=== PATIENT | female | born 2000 | race Caucasian/White ===

== ENCOUNTER 2021-02-07 18:10 | Emergency (ER) | payer OTHER ==
[2021-02-07 18:35] LABS: BILIRUBIN,URINE NEGATIVE (NEGATIVE); GLUCOSE, URINE (UA) NEGATIVE (NEGATIVE); KETONES,URINE (UA) NEGATIVE (NEGATIVE); LEUKOCYTE ESTERASE, URINE SMALL (NEGATIVE); NITRITE,URINE NEGATIVE (NEGATIVE); OCCULT BLOOD,URINE NEGATIVE (NEGATIVE); PH,URINE 7.5 PH (5.0-7.5); PROTEIN,URINE NEGATIVE (NEGATIVE); UROBILINOGEN,URINE 0.2 (NORMAL) E.U./dL (NORMAL)
[2021-02-07 18:39] LABS: BACTERIA,URINE None Seen /HPF (None Seen); CLARITY,URINE CLEAR (CLEAR); HCG UR QUAL NEGATIVE; RBC,URINE 0-5 /HPF (0-5); SQUAMOUS EPITHELIAL CELL,UR FEW Squamous (<= Few); WBC,URINE 0-3 /HPF (0-5)
--- NOTE | 2021-02-07 18:58 | ED Physician Documentation ---
History of Present Illness - Stated complaint Stated Complaint: F - Chief complaint Chief Complaint: UTI - Additonal information Additional information: 20-year-old female presents to the emergency department for evaluation of thick yellow vaginal discharge some vaginal pruritus as well as pain that started 2 days ago. She recently completed a weeklong course of amoxicillin for a pharyngitis. She has no dysuria fevers or flank pain. Patient is sexually active monogamous with one male partner does not use condoms. She would like STD screening today. Review of Systems Constitutional: reports: Reviewed and negative Ears: reports: Reviewed and negative Nose: reports: Reviewed and negative Throat: reports: Reviewed and negative Cardiac: reports: Reviewed and negative Respiratory: reports: Reviewed and negative GI: reports: Reviewed and negative : reports: Discharge. denies: Dysuria, Frequency, Hesitancy Musculoskeletal: reports: Reviewed and negative Neurologic: reports: Reviewed and negative PD PAST MEDICAL HISTORY - Past Medical History Past Medical History: Yes - Past Surgical History Past Surgical History: No - Present Medications Home Medications: Ambulatory Orders Medication Instructions Recorded Confirmed Fluconazole [Diflucan] 200 mg PO ONCE #2 tablet 02/07/21 metroNIDAZOLE [Flagyl] 500 mg PO BID #20 tablet 02/07/21 - Allergies Allergies/Adverse Reactions: Allergies Allergy/AdvReac Type Severity Reaction Status Date / Time No Known Drug Allergies Allergy Verified 02/07/21 18:12 - Social History Does the pt smoke?: Yes Smoking Status: Current every day smoker Does the pt drink ETOH?: Yes Does the pt have substance abuse?: No - Immunizations Immunizations are current?: Yes - POLST Patient has POLST: No PD ED PE NORMAL - General General: Alert and oriented X 3, No acute distress, Well developed/nourished - HEENT HEENT: Atraumatic, Ears normal, Moist mucous membranes, Pharynx benign - Cardiac Cardiac: RRR, No murmur, No gallop - Respiratory Respiratory: No respiratory distress, Clear bilaterally - Abdomen Abdomen: Normal bowel sounds, Soft, Non tender - Female Female : Deferred - Back Back: No CVA TTP - Derm Derm: Normal color, Warm and dry, No rash - Extremities Extremities: No deformity, No tenderness to palpate, Normal ROM s pain - Neuro Neuro: Alert and oriented X 3, 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 Eye Opening: Spontaneous Motor: Obeys Commands Verbal: Oriented GCS Score: 15 - Psych Psych: Normal mood Results - Vitals Vitals: Vital Signs - 24 hr 02/07/21 18:13 Temperature 37.0 C Heart Rate 85 Respiratory 18 Rate Blood Pressure 123/86 H O2 Saturation 99 Oxygen O2 Source Room air - Labs Labs: Microbiology 02/07/21 18:55 Wet Prep - Final Genital - Cervix Laboratory Tests 02/07/21 18:21 Urine Color YELLOW Urine Clarity CLEAR Urine pH 7.5 Ur Specific [place] 1.020 Urine Protein NEGATIVE Urine Glucose (UA) NEGATIVE Urine Ketones NEGATIVE Urine Occult Blood NEGATIVE Urine Nitrite NEGATIVE Urine Bilirubin NEGATIVE Urine Urobilinogen 0.2 (NORMAL) Ur Leukocyte Esterase SMALL H Urine RBC 0-5 Urine WBC 0-3 Ur Squamous Epith Cells FEW Squamous Urine Bacteria None Seen Ur Microscopic Review INDICATED Urine Culture Comments INDICATED Urine HCG, Qual NEGATIVE PD MEDICAL DECISION MAKING - ED course Complexity details: reviewed results, re-evaluated patient, d/w patient ED course: Well-appearing 20-year-old female presents the emergency department for evaluation of 2 days white and yellow vaginal discharge with some discomfort in the genital area and associated pruritus. She recently completed a course of amoxicillin for a strep infection. She also requests GC screening as she is sexually active but not using condoms. UA is not consistent with infection. Her wet prep does show a small amount of clue cells therefore I suspect that this is likely bacterial vaginosis but given the pruritus I will also treat for a yeast infection. She will be started on fluconazole as well as Diflucan. Patient is to follow-up with her primary care provider. Emergent return precautions were discussed. Departure - Departure Disposition: 01 Home, Self Care Clinical Impression: Bacterial vaginosis, Yeast infection Condition: Stable Record reviewed to determine appropriate education?: Yes Instructions: ED Vaginosis Bacterial Prescriptions: Fluconazole [Diflucan] 200 mg PO ONCE #2 tablet metroNIDAZOLE [Flagyl] 500 mg PO BID #20 tablet Comments: The way it looks like you have developed a bacterial vaginosis. This is an overgrowth of bacteria in your vaginal canal. This is most likely because you were taking amoxicillin. Let us have you take the Flagyl twice daily for the next 10 days. I would like you to fill the prescription for the fluconazole. Take 1 tablet now and again at the end of your Flagyl course. You would also benefit by eating healthy cultures like lactobacillus or yogurt. This can help replenish healthy bacterial in our GI/ tract and restore a pH to normal
[2021-02-07 19:36] VITALS: BP 121/79
[2021-02-07 21:59] LABS: CHLAMYDIA TRACHOMATIS DNA NEGATIVE (NEGATIVE); NEISSERIA GONORRHOEAE DNA NEGATIVE (NEGATIVE); TRICHOMONAS VAGINALIS DNA NEGATIVE (NEGATIVE)
== END 2021-02-07 19:35 | disposition home or self-care (01) ==
LOC: ED 18:10
DX: N76.0 Acute vaginitis (principal); B37.9 Candidiasis, unspecified; F17.200 Nicotine dependence, unspecified, uncomplicated
CPT/HCPCS: 81001; 81003; 81025; 87086; 87210; 87491; 87591; 87661; 99283

== ENCOUNTER 2021-08-07 08:21 | Emergency (ER) | payer OTHER ==
[2021-08-07 08:32] VITALS: BP 123/78
--- NOTE | 2021-08-07 09:02 | XRAY Report ---
PROCEDURE: Knee 4 View LT INDICATIONS: Knee injury TECHNIQUE: 4 views of the left knee(s) were acquired. COMPARISON: None. FINDINGS: Bones: No fracture or dislocation. Normal patellar height and position. Joint spaces are maintained . No suspicious bony lesions. Soft tissues: No joint effusion. No suspicious soft tissue calcifications. IMPRESSION: No acute finding. Reviewed by: Nadir Silva MD on 08/07/2021 9:00 AM PDT Approved by: Nadir Silva MD on 08/07/2021 9:00 AM PDT Station ID: [id number]
--- NOTE | 2021-08-07 09:15 | ED Physician Documentation ---
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 She twisted her knee and now has pain from the medial knee towards the lateral hip. She had this happen before. She is able to walk and bear weight. There was no fall. 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: Yes Does the pt have substance abuse?: No - Immunizations Immunizations are current?: Yes - POLST Patient has POLST: No PD ED PE NORMAL - Vitals Vital signs reviewed: Yes - General General: Alert and oriented X 3, No acute distress - HEENT HEENT: PERRL, EOMI - Extremities Extremities: Other (Tenderness along medial joint line of the knee, no effusion, ligamentous testing is normal. Muscular tenderness along the distribution of the sartorius on the left.) - Neuro Neuro: Alert and oriented X 3, Normal speech - Psych Psych: Normal mood, Normal affect Results - Vitals Vitals: Vital Signs - 24 hr 08/07/21 08:26 Temperature 36.3 C L Heart Rate 77 Respiratory 15 Rate Blood Pressure 123/78 O2 Saturation 99 Oxygen O2 Source Room air - Rads (name of study) 4 view x-ray left knee is normal Radiology: EMP read contemporaneously Departure - Departure Disposition: 01 Home, Self Care Clinical Impression: Knee sprain Qualifiers: Encounter type: initial encounter Involved ligament of knee: unspecified ligament Laterality: left Qualified Code(s): S83.92XA - Sprain of unspecified site of left knee, initial encounter Condition: Good Record reviewed to determine appropriate education?: Yes Instructions: ED Sprain Knee Comments: As discussed, this is consistent with a sprain or partial tear of the left sartorius. Return for new or worsening symptoms. Ibuprofen as needed for pain. [place]
== END 2021-08-07 09:23 | disposition home or self-care (01) ==
LOC: ED 08:21
DX: S83.412A Sprain of medial collateral ligament of left knee, initial encounter (principal); X50.1XXA Overexertion from prolonged static or awkward postures, initial encounter; F17.200 Nicotine dependence, unspecified, uncomplicated
CPT/HCPCS: 99282; 99283

== ENCOUNTER 2021-09-20 12:07 | Emergency (ER) | payer OTHER ==
--- NOTE | 2021-09-20 14:49 | ED Physician Documentation ---
History of Present Illness - Stated complaint Stated Complaint: RASH,SHOULDER PX,SORE THROAT - Chief complaint Chief Complaint: General - History obtained from History obtained from: Patient - Additonal information Additional information: Symptoms ongoing for the last 2-Female presents to the emergency department with report of fever, chills, sore throat as well as with rash that. On her left upper extremity. 3 days. Reports similar symptoms approximately 1 month ago. Reports recent travel from [place]. He denies any tick bites, camping or other known insect exposure. Review of Systems Ten Systems: 10 systems reviewed and negative Constitutional: reports: Fever, Chills Eyes: denies: Loss of vision Ears: denies: Loss of hearing Nose: reports: Congestion. denies: Rhinorrhea / runny nose Throat: reports: Sore throat, Swollen tonsils. 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 : None HEENT: None Psych: None Musculoskeletal: None Derm: None - Past Surgical History Past Surgical History: No - Present Medications Home Medications: Ambulatory Orders Medication Instructions Recorded Confirmed Fluconazole [Diflucan] 200 mg PO ONCE #2 tablet 02/07/21 metroNIDAZOLE [Flagyl] 500 mg PO BID #20 tablet 02/07/21 Amox/Clav 875/125 [Augmentin] 1 tab PO Q12H #20 tablet 09/20/21 Clotrimazole/Betamethasone Crm 1 gm TOP BID #45 mg 09/20/21 [Lotrisone Cream] - Allergies Allergies/Adverse Reactions: Allergies Allergy/AdvReac Type Severity Reaction Status Date / Time No Known Drug Allergies Allergy Verified 09/20/21 12:24 - Social History Does the pt smoke?: Yes Smoking Status: Current every day smoker Does the pt drink ETOH?: Yes Does the pt have substance abuse?: No - Immunizations Immunizations are current?: Yes - POLST Patient has POLST: No PD ED PE NORMAL - General General: Alert and oriented X 3 - Neck Neck: Supple, no meningeal sign, No JVD - Cardiac Cardiac: RRR, No gallop - Respiratory Respiratory: No respiratory distress - Abdomen Abdomen: Normal bowel sounds - Female Female : Deferred - Rectal Rectal: Deferred - Back Back: No CVA TTP - Derm Derm: Normal color - Extremities Extremities: No deformity - Neuro Neuro: Alert and oriented X 3 Eye Opening: Spontaneous Motor: Obeys Commands Verbal: Oriented GCS Score: 15 - Psych Psych: Normal mood PD ED PE EXPANDED - HEENT HEENT: Swollen tonsils, Tonsillar exudate - Derm Derm: Rash (There is a nonblanching erythematous maculopapular rash noted prominently on the dorsal aspect of the patient's left forearm.) Results - Vitals Vitals: Vital Signs - 24 hr 09/20/21 12:16 Temperature 38.8 C H Heart Rate 88 Respiratory 16 Rate Blood Pressure 136/74 H O2 Saturation 99 Oxygen O2 Source Room air - Labs Labs: Laboratory Tests 09/20/21 09/20/21 09/20/21 14:50 15:00 15:00 WBC 15.6 H RBC 4.60 Hgb 13.6 Hct 40.1 MCV 87.2 MCH 29.6 MCHC 33.9 RDW 11.7 L Plt Count 290 MPV 9.8 Neut # (Auto) 13.3 H Lymph # (Auto) 1.3 L Garrett # (Auto) 1.0 Eos # (Auto) 0.0 Baso # (Auto) 0.0 Absolute Nucleated RBC 0.00 Nucleated RBC % 0.0 Sodium 136 Potassium 3.5 Chloride 103 Carbon Dioxide 22 Anion Gap 11.0 BUN 8 Creatinine 0.8 Estimated GFR (MDRD) 90 Glucose 89 Calcium 9.1 Total Bilirubin 1.6 H AST 22 ALT 30 Alkaline Phosphatase 58 Total Protein 8.0 Albumin 4.4 Globulin 3.6 Albumin/Globulin Ratio 1.2 Lipase 25 Nasal Adenovirus (PCR) Nasal B. parapertussis DNA (PCR) Nasal Coronavir 229E PCR Nasal Coronavir HKU1 PCR Nasal Coronavir NL63 PCR Nasal Coronavir OC43 PCR Nasal Enterovir/Rhinovir PCR Nasal Influenza B PCR Nasal Influenza A PCR Nasal Parainfluen 1 PCR Nasal Parainfluen 2 PCR Nasal Parainfluen 3 PCR Nasal Parainfluen 4 PCR Nasal RSV (PCR) Nasal B.pertussis DNA PCR Nasal C.pneumoniae (PCR) Jose Alfredo Human Metapneumo PCR Nasal M.pneumoniae (PCR) Nasal SARS-CoV-2 (PCR) Infectious Garrett Assay NEGATIVE Group A Strep Rapid 09/20/21 09/20/21 15:07 15:07 WBC RBC Hgb Hct MCV MCH MCHC RDW Plt Count MPV Neut # (Auto) Lymph # (Auto) Garrett # (Auto) Eos # (Auto) Baso # (Auto) Absolute Nucleated RBC Nucleated RBC % Sodium Potassium Chloride Carbon Dioxide Anion Gap BUN Creatinine Estimated GFR (MDRD) Glucose Calcium Total Bilirubin AST ALT Alkaline Phosphatase Total Protein Albumin Globulin Albumin/Globulin Ratio Lipase Nasal Adenovirus (PCR) NOT DETECTED Nasal B. parapertussis DNA (PCR) NOT DETECTED Nasal Coronavir 229E PCR NOT DETECTED Nasal Coronavir HKU1 PCR NOT DETECTED Nasal Coronavir NL63 PCR NOT DETECTED Nasal Coronavir OC43 PCR NOT DETECTED Nasal Enterovir/Rhinovir PCR NOT DETECTED Nasal Influenza B PCR NOT DETECTED Nasal Influenza A PCR NOT DETECTED Nasal Parainfluen 1 PCR NOT DETECTED Nasal Parainfluen 2 PCR NOT DETECTED Nasal Parainfluen 3 PCR NOT DETECTED Nasal Parainfluen 4 PCR NOT DETECTED Nasal RSV (PCR) NOT DETECTED Nasal B.pertussis DNA PCR NOT DETECTED Nasal C.pneumoniae (PCR) NOT DETECTED Jose Alfredo Human Metapneumo PCR NOT DETECTED Nasal M.pneumoniae (PCR) NOT DETECTED Nasal SARS-CoV-2 (PCR) NOT DETECTED Infectious Garrett Assay Group A Strep Rapid POSITIVE H PD MEDICAL DECISION MAKING - ED course Complexity details: reviewed results, re-evaluated patient, d/w patient ED course: Is otherwise healthy 21-year-old female presenting to the emergency department today with report of fever, chills, sore throat and congestion at home as well as a rash on her left upper extremity. Afebrile, otherwise hemodynamically stable here in the emergency department however physical exam did demonstrate prominent tonsillar swelling with exudates and jugulodigastric adenopathy. Additionally she had a blanching red maculopapular rash noted on her left upper extremity most consistent with contact dermatitis. She had basic labs which demonstrated a mild leukocytosis. Her respiratory viral panel was negative. Her strep pharyngitis screening was positive. She was offered penicillin therapy in the emergency department versus a course of Augmentin and she has elected to initiate a course of Augmentin. Additionally I will discharge on a short course of Lotrisone for the rash in her left upper extremity. She was encouraged to establish yourself a local area primary care or return to the emergency department for new or worsening symptoms. Departure - Departure Disposition: 01 Home, Self Care Clinical Impression: Strep pharyngitis, Rash and nonspecific skin eruption Condition: Fair Instructions: ED Strep Pharyngitis Conf Follow-Up: [facility] [place] [Provider Group] Prescriptions: Amox/Clav 875/125 [Augmentin] 1 tab PO Q12H #20 tablet Clotrimazole/Betamethasone Crm [Lotrisone Cream] 1 gm TOP BID #45 mg Comments: Thank you for allowing us to care for you today at [facility] You are diagnosed with strep pharyngitis. But this is a common kind of bacterial infection can cause fever and sore throat. I would like you to begin a course of oral antibiotics. You received your first dose here in the emergency department. Also be discharging you with a prescription for medicated cream to begin using twice daily on the rash on your upper forearm. Please follow-up with the [facility] whose contact information is included in this discharge packet in order to establish yourself with a primary care doctor. Otherwise I recommend drinking plenty of fluids and getting plenty of rest. If it anytime you have any new or worsening symptoms please not hesitate to return to the emergency department.
[2021-09-20 15:08] LABS: BASOPHILS % (AUTO) 0.3 %; EOSINOPHILS % (AUTO) 0.1 %; HCT - HEMATOCRIT 40.1 % (37.0-47.0); HGB - HEMOGLOBIN 13.6 g/dL (12.0-16.0); LYMPHOCYTES # (AUTO) 1.3 10^3/uL (1.5-3.5); MEAN CORPUSCULAR HEMOGLOBIN 29.6 pg (27.0-31.0); MEAN CORPUSCULAR HGB CONC 33.9 g/dL (32.0-36.0); MEAN CORPUSCULAR VOLUME 87.2 fL (81.0-99.0); MEAN PLATELET VOLUME 9.8 fL (7.9-10.8); MONOCYTES % (AUTO) 6.2 %; NEUTROPHILS # (AUTO) 13.3 10^3/uL (1.5-6.6); NEUTROPHILS % (AUTO) 85.1 %; PLT - PLATELET COUNT 290 10^3/uL (130-450); RED CELL DISTRIBUTION WIDTH 11.7 % (12.0-15.0); WHITE BLOOD COUNT 15.6 x10^3/uL (4.8-10.8)
[2021-09-20 15:18] LABS: INFECTIOUS MONONUCLEOSIS NEGATIVE (Negative)
[2021-09-20 15:20] LABS: ALBUMIN 4.4 g/dL (3.2-5.5); ALBUMIN/GLOBULIN RATIO 1.2 (1.0-2.2); BILIRUBIN,TOTAL 1.6 mg/dL (0.2-1.0); CALCIUM 9.1 mg/dL (8.5-10.3); CREATININE 0.8 mg/dL (0.4-1.0); POTASSIUM 3.5 mmol/L (3.5-5.0)
[2021-09-20 15:23] LABS: RAPID STREP SCREEN POSITIVE (Negative)
[2021-09-20 16:07] LABS: B. PARAPERTUSSIS- RESP PCR PAN NOT DETECTED; B. PERTUSSIS- RESP PCR PANEL NOT DETECTED; C. PNEUMONIAE- RESP PCR PANEL NOT DETECTED; CORONAVIRUS 229E-RESP PCR NOT DETECTED; CORONAVIRUS HKU1-RESP PCR NOT DETECTED; CORONAVIRUS NL63-RESP PCR NOT DETECTED; CORONAVIRUS OC43-RESP PCR NOT DETECTED; HUMAN METAPNEUMOVIRUS NOT DETECTED; INFLUENZA A- RESP PCR PANEL NOT DETECTED; INFLUENZA B - RESP PCR PANEL NOT DETECTED; M. PNEUMONIAE- RESP PCR PANEL NOT DETECTED; PARAINFLUENZA VIRUS 1 NOT DETECTED; PARAINFLUENZA VIRUS 2 NOT DETECTED; PARAINFLUENZA VIRUS 3 NOT DETECTED; PARAINFLUENZA VIRUS 4 NOT DETECTED; RHINOVIRUS/ENTEROVIRUS NOT DETECTED; RSV- RESP PCR PANEL NOT DETECTED; SARS-CoV-2 -RESP PCR PANEL NOT DETECTED
[2021-09-20] MEDS ORDERED: AMOX/CLAV 875 MG/125 MG TABLET PO STA (16:51)
[2021-09-20 17:14] VITALS: BP 111/70
== END 2021-09-20 17:14 | disposition home or self-care (01) ==
LOC: ED 12:07
DX: J02.0 Streptococcal pharyngitis (principal); R21 Rash and other nonspecific skin eruption; F17.200 Nicotine dependence, unspecified, uncomplicated; Z20.822 Contact with and (suspected) exposure to COVID-19
CPT/HCPCS: 0202U; 36415; 80053; 83690; 85025; 86308; 87430; 99283; A9270

== ENCOUNTER 2021-09-23 11:58 | Emergency (ER) | payer OTHER ==
[2021-09-23 12:16] VITALS: BP 126/76
--- NOTE | 2021-09-23 12:45 | ED Physician Documentation ---
History of Present Illness - Stated complaint Stated Complaint: SHOULDER/ARM PX L HAND SWELLING - Chief complaint Chief Complaint: General - Additonal information Additional information: 21-year-old female presents emergency department for evaluation of a painful vesicular rash that is on the dorsum of her left forearm. She is concerned she could have shingles. She reports that she had chickenpox before the age of 7. She has not been vaccinated for shingles as an adult. She was seen in this emergency department on 20 September for fever, sore throat as well as the rash. She was diagnosed positive for strep and started on Augmentin. At that time the rash was felt to likely be a contact dermatitis and that she was started on a nystatin and clobetasol ointment. However the rash remains very painful. Thus she presents to the ER for further evaluation. 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 HEENT: None Psych: None Musculoskeletal: None Derm: None - Past Surgical History Past Surgical History: No - Present Medications Home Medications: Ambulatory Orders Medication Instructions Recorded Confirmed Fluconazole [Diflucan] 200 mg PO ONCE #2 tablet 02/07/21 metroNIDAZOLE [Flagyl] 500 mg PO BID #20 tablet 02/07/21 Amox/Clav 875/125 [Augmentin] 1 tab PO Q12H #20 tablet 09/20/21 Clotrimazole/Betamethasone Crm 1 gm TOP BID #45 mg 09/20/21 [Lotrisone Cream] Gabapentin [Neurontin] 300 mg PO TID #18 cap 09/23/21 Valacyclovir HCl [Valtrex] 1,000 mg PO TID 7 Days #21 tablet 09/23/21 - Allergies Allergies/Adverse Reactions: Allergies Allergy/AdvReac Type Severity Reaction Status Date / Time No Known Drug Allergies Allergy Verified 09/23/21 12:12 - Social History Does the pt smoke?: Yes Smoking Status: Current every day smoker Does the pt drink ETOH?: Yes Does the pt have substance abuse?: No - Immunizations Immunizations are current?: Yes - POLST Patient has POLST: No PD ED PE EXPANDED - General General: Alert, In Pain - Cardiac Cardiac: Regular Rate, Radial strong equal, Pedal strong equal, Cap refill < 2 sec - Respiratory Respiratory: Clear to ausultation zeb. No: Distress, Labored - Abdomen Abdomen: Normal Bowel sounds. No: Tender to palpation - Derm Derm: Normal color, Warm and dry, Rash (Painful maculopapular and vesicular rash on the dorsum of the left forearm that seems to be distributed mainly within the C7 dermatomal distribution) Results - Vitals Vitals: Vital Signs - 24 hr 09/23/21 12:12 Temperature 36.5 C Heart Rate 90 Respiratory 16 Rate Blood Pressure 126/76 O2 Saturation 98 Oxygen O2 Source Room air PD MEDICAL DECISION MAKING - ED course Complexity details: reviewed results, re-evaluated patient, d/w patient ED course: 21-year-old female presents emergency department for evaluation of a painful maculopapular vesicular rash that began nearly 1 week ago on her left forearm. She reports a history of chickenpox as a child. Seen recently for this rash and it was at that time thought to be a contact dermatitis. It has failed to respond to nystatin or clobetasol ointment. Given the distribution of this rash which seems to be most dominant within the C7 distribution and her history of chickenpox we will start treatment for suspected shingles. Patient will be placed on gabapentin as well as valacyclovir. Advised to discontinue the use of the ointments. She will follow-up with [facility] this week. Emergent and worrisome return precautions were discussed as well as routine care and management of the shingles. Departure - Departure Disposition: 01 Home, Self Care Clinical Impression: Shingles Qualifiers: Herpes zoster complications: unspecified herpes zoster complication Qualified Code(s): B02.8 - Zoster with other complications Condition: Stable Record reviewed to determine appropriate education?: Yes Instructions: ED Shingles Prescriptions: Gabapentin [Neurontin] 300 mg PO TID #18 cap Valacyclovir HCl [Valtrex] 1,000 mg PO TID 7 Days #21 tablet Comments: Tamiko were seen in the emergency department today for a painful rash on your left forearm. Given that you did have chickenpox as a child this is most likely shingles. Please fill the prescription for the valacyclovir as well as the gabapentin at the pharmacy today. I would like you to follow-up with [facility] in the next week. This rash is considered contagious until fully scabbed over which typically takes about 2 weeks. If at any point you feel that the rash is worsening despite this treatment, you have a return of fevers, worsening pain then please return immediately to the ER for second evaluation. You can discontinue use of the clobetasol and Lotrimin ointments that were prescribed earlier in the week.
== END 2021-09-23 12:56 | disposition home or self-care (01) ==
LOC: ED 11:58
DX: R23.8 Other skin changes (principal); B02.8 Zoster with other complications; F17.200 Nicotine dependence, unspecified, uncomplicated
CPT/HCPCS: 99282; 99284

== ENCOUNTER 2021-09-30 23:56 | Emergency (ER) | payer OTHER ==
--- NOTE | 2021-10-01 01:21 | ED Physician Documentation ---
History of Present Illness - Stated complaint Stated Complaint: L SHOULDER PX - Chief complaint Chief Complaint: Ext Problem - History obtained from History obtained from: Patient - History of Present Illness Timing: How many days ago (10) Pain level now: 4 - Additonal information Additional information: c/o painful LUE rash. she initially presented to this ED 09/19 and at that time was diagnosed with strep throat by (+) rapid strep test, prescribed antibiotic. She returned 09/23 for painful LUE rash which was diagnosed as shingles / herpes zoster, prescribed gabapentin and antiviral. she says she was evaluated over the phone by PMD and seeing how she was having symptom control with the gabapentin, no further testing nor treatment was recommended. She has subsequently run out of the gabapentin which, in combination with ibuprofen, had been providing adequate relief. She has completed the prescribed course of antiviral medicati on. No new lesions or progression of the rash. denies fever. Review of Systems Constitutional: denies: Fever Skin: reports: Rash Musculoskeletal: reports: Extremity pain (LUE in distribution of the exanthem) PD PAST MEDICAL HISTORY - Past Medical History Cardiovascular: None Respiratory: None Neuro: None Endocrine/Autoimmune: None GI: None FONDANT [employer]ER: None : None HEENT: None Psych: None Musculoskeletal: None Derm: None - Past Surgical History Past Surgical History: No - Present Medications Home Medications: Ambulatory Orders Medication Instructions Recorded Confirmed Fluconazole [Diflucan] 200 mg PO ONCE #2 tablet 02/07/21 metroNIDAZOLE [Flagyl] 500 mg PO BID #20 tablet 02/07/21 Amox/Clav 875/125 [Augmentin] 1 tab PO Q12H #20 tablet 09/20/21 Clotrimazole/Betamethasone Crm 1 gm TOP BID #45 mg 09/20/21 [Lotrisone Cream] Gabapentin [Neurontin] 300 mg PO TID #18 cap 09/23/21 Valacyclovir HCl [Valtrex] 1,000 mg PO TID 7 Days #21 tablet 09/23/21 Gabapentin [Neurontin] 300 mg PO TID #18 cap 10/01/21 Ibuprofen [Motrin] 600 mg PO Q6H PRN #20 tab 10/01/21 traMADol [Ultram] 50 - 100 mg PO Q6H PRN #20 tablet 10/01/21 - Allergies Allergies/Adverse Reactions: Allergies Allergy/AdvReac Type Severity Reaction Status Date / Time No Known Drug Allergies Allergy Verified 09/23/21 12:12 - Social History Does the pt smoke?: Yes Smoking Status: Current every day smoker Does the pt drink ETOH?: Yes Does the pt have substance abuse?: No - Immunizations Immunizations are current?: Yes - POLST Patient has POLST: No PD ED PE NORMAL - Vitals Vital signs reviewed: Yes - General General: Alert and oriented X 3, No acute distress, Well developed/nourished - Derm Derm: Warm and dry - Extremities Extremities: No edema PD ED PE EXPANDED - Extremities Extremities: Other (clusters of dry vesicles LUE in distribution that approximates C6 dermatome including cut off (no lesions) proximal to mid-bicep level. ) Results - Vitals Vitals: Vital Signs - 24 hr 10/01/21 10/01/21 00:07 02:01 Temperature 36.6 C 36.5 C Heart Rate 91 88 Respiratory 16 16 Rate Blood Pressure 136/83 H 130/80 O2 Saturation 98 98 Oxygen O2 Source Room air PD MEDICAL DECISION MAKING - ED course Complexity details: reviewed old records, considered differential, d/w patient ED course: agree with diagnosis made on previous ED visit; patients painful exanthem appears to be sharply demarcated in a unilateral dermatomal distribution, is painful, and she has had varicella (chickenpox) in the past. No new lesions; further antivirals and/or steroids are not indicated at this time. patient is chiefly here for pain control and she had been having adequate relief with gabapentin with ibuprofen, and prescriptions for these are sent to her pharmacy as well as rx for tramadol to be used if she does not have adequate relief with the other two medications. Departure - Departure Disposition: 01 Home, Self Care Clinical Impression: Herpes zoster Condition: Good Instructions: ED Shingles Follow-Up: [facility] [Provider Group] Prescriptions: Ibuprofen [Motrin] 600 mg PO Q6H PRN #20 tab PRN Reason: Pain Gabapentin [Neurontin] 300 mg PO TID #18 cap traMADol [Ultram] 50 - 100 mg PO Q6H PRN #20 tablet PRN Reason: Pain Comments: You can take the tramadol (pain medication) if the gabapentin and ibuprofen do not control your pain. Prescriptions for these three medications have been electronically submitted to [facility] pharmacy in [place]. I am prescribing a short course of narcotic pain medication for you. These are potentially dangerous and addictive medications that should be used carefully. These medications may constipate you. Take an menn-ory-smodrmu stool softener (docusate) twice daily with plenty of water while taking these medications. If you go 24 hours without a bowel movement, take ekns-srt-[id number] miralax, per package instructions. Do not drink or drive while taking these medications. If you received narcotic or sedating medications while in the emergency department, do not drive for 24 hours. Store this medication in a safe, secure place and out of reach of children. It is a violation of federal law to give or sell this medication to another person or to use in a manner other than prescribed. The ED will not refill narcotic prescriptions, including prescriptions lost or stolen. To dispose of unwanted medications: 1. [facility] at [address] in [place] has a medication drop box. They accept prescription medications (in pill form) Friday through Friday 9:00 a.m. to 5:00 p.m. 2. The [facility] accepts prescription medications (in pill form only) for disposal year round. Call for more information. 3. Contact the [facility] for the next [facility] sponsored prescription drug collection event. , [phone], or [phone]; Discharge Date/Time: 10/01/21 02:01
[2021-10-01] MEDS ORDERED: GABAPENTIN 100 MG CAPSULE PO STA (01:48)
[2021-10-01 02:02] VITALS: BP 130/80
== END 2021-10-01 02:01 | disposition home or self-care (01) ==
LOC: ED 23:56
DX: B02.9 Zoster without complications (principal); F17.200 Nicotine dependence, unspecified, uncomplicated
CPT/HCPCS: 99283; A9270

== ENCOUNTER 2023-08-22 11:31 | Emergency (ER) | payer OTHER ==
[2023-08-22 12:11] VITALS: BP 114/71; O2SAT 99
--- NOTE | 2023-08-22 13:22 | ED Physician Documentation ---
PD HPI HEAD INJURY - Stated complaint Stated Complaint: DIZZY,HEADACHE - Chief complaint Chief Complaint: Trauma Hd/Nk - History obtained from History obtained from: Patient - History of Present Illness Mechanism of head injury: Blow (The patient was getting up into the engine component of the gravel or plain and struck her head. She complained of some subsequent headache, feeling little dazed and off-balance and mild blurred vision. Continues now 4 hours later and referred to the ER.) Where head injury occurred: Work Timing - onset: How many hours ago (4) Location of injury: Top Quality of pain: Pain (has had increasing degree of pain, with worse the past 2 hours, to now more severe amount.), Throbbing, Aching Associated symptoms: AMS (lightheaded, slow thought process, off balance walking.), Nausea / vomiting (mild). No: LOC, Neck pain, Paresthesias Symptoms worsen with: Movement. No: Palpation Contributing factors: No: Anticoagulated Similar symptoms before: Has not had sx before (has had migraines about every 2- 4 weeks treats with Naproxen OTC and rest. She states current headache different in character and norris sbecome worse.) Review of Systems Constitutional: denies: Fever, Chills Eyes: reports: Decreased vision. denies: Loss of vision, Photophobia Nose: denies: Rhinorrhea / runny nose, Congestion Throat: denies: Sore throat Respiratory: denies: Cough GI: reports: Nausea. denies: Vomiting Musculoskeletal: denies: Neck pain, Back pain Neurologic: reports: Confused, Headache, Head injury. denies: Focal weakness, Numbness, Near syncope, LOC PD PAST MEDICAL HISTORY - Past Medical History Cardiovascular: None Respiratory: None Neuro: Migraines Endocrine/Autoimmune: None GI: None RESIDENTIAL NURSE: None : None HEENT: None Psych: None Musculoskeletal: None Derm: None - Past Surgical History Past Surgical History: No - Present Medications Home Medications: Ambulatory Orders Medication Instructions Recorded Confirmed Fluconazole [Diflucan] 200 mg PO ONCE #2 tablet 02/07/21 metroNIDAZOLE [Flagyl] 500 mg PO BID #20 tablet 02/07/21 Amox/Clav 875/125 [Augmentin] 1 tab PO Q12H #20 tablet 09/20/21 Clotrimazole/Betamethasone Crm 1 gm TOP BID #45 mg 09/20/21 [Lotrisone Cream] Gabapentin [Neurontin] 300 mg PO TID #18 cap 09/23/21 Valacyclovir HCl [Valtrex] 1,000 mg PO TID 7 Days #21 tablet 09/23/21 Gabapentin [Neurontin] 300 mg PO TID #18 cap 10/01/21 Ibuprofen [Motrin] 600 mg PO Q6H PRN #20 tab 10/01/21 traMADol [Ultram] 50 - 100 mg PO Q6H PRN #20 tablet 10/01/21 - Allergies Allergies/Adverse Reactions: Allergies Allergy/AdvReac Type Severity Reaction Status Date / Time No Known Drug Allergies Allergy Verified 08/22/23 12:01 - Social History Does the pt smoke?: Yes Smoking Status: Current every day smoker Does the pt drink ETOH?: Yes Does the pt have substance abuse?: No - Immunizations Immunizations are current?: Yes - POLST Patient has POLST: No PD ED PE NORMAL - Vitals Vital signs reviewed: Yes - General General: Alert and oriented X 3, No acute distress, Well developed/nourished - HEENT HEENT: PERRL, EOMI, Other (tender vertex of head without swelling. ) - Neck Neck: Supple, no meningeal sign, No bony TTP, No adenopathy - Derm Derm: Normal color, Warm and dry - Neuro Neuro: Alert and oriented X 3, tub rider 2-12 intact, No motor deficit, No sensory deficit, Normal speech Eye Opening: Spontaneous Motor: Obeys Commands Verbal: Confused GCS Score: 14 Results - Vitals Vitals: Vital Signs - 24 hr 08/22/23 12:02 Temperature 37 C Heart Rate 70 Respiratory 16 Rate Blood Pressure 114/71 O2 Saturation 99 Oxygen O2 Source Room air - Rads (name of study) head CT Relevant Findings:: Prelim report reviewed, EMP independent interpretation of test PD Medical Decision Making - ED course Complexity details: considered differential (Direct impact of her head jumping up into the engine compartment. Has concussive type symptoms. These have persisted for 4 hours now. Shared discussion with the patient to undergo CT scan and treat with some anti-inflammatories. History of migraines but feels different.), d/w patient Reviewed Lab Results: did not have LOC nor focal neuro symptoms. Has concussive symptoms of headache, slow though, off balance. Has increasing headache over the past 4 hours, now severe. My concern is over the increasing headache along with injry and concussive symptoms. Departure - Departure Disposition: 01 Home, Self Care Clinical Impression: Severe headache Head contusion Qualifiers: Encounter type: initial encounter Contusion of head detail: unspecified part of head Qualified Code(s): S00.93XA - Contusion of unspecified part of head, initial encounter Concussion Qualifiers: Encounter type: initial encounter Loss of consciousness presence/duration: without LOC Qualified Code(s): S06.0X0A - Concussion without loss of consciousness, initial encounter Condition: Stable Record reviewed to determine appropriate education?: Yes Instructions: ED Head Injury Closed Comments: Return if you worsen or develop new symptoms. You can take Tylenol and/or ibuprofen as needed for headaches. Take it easy over the weekend. Forms: Activity restrictions Discharge Date/Time: 08/22/23 15:45
[2023-08-22] MEDS ORDERED: NAPROXEN 250 MG TABLET PO STA (13:45)
[2023-08-22] MEDS ORDERED: ACETAMINOPHEN 325 MG TABLET PO STA (13:45)
--- NOTE | 2023-08-22 15:15 | CT Report ---
PROCEDURE: HEAD WO INDICATIONS: struck head, concussive symptoms TECHNIQUE: Noncontrast 4.5 mm thick angled axial sections acquired from the foramen magnum to the vertex. For r adiation dose reduction, the following was used: automated exposure control, adjustment of mA and/or kV according to patient size. COMPARISON: None. FINDINGS: Image quality: Excellent. CSF spaces: Basal cisterns are patent. No extra-axial fluid collections. Ventricles are normal in size and shape. Brain: No midline shift. No intracranial masses or hemorrhage. Giron-white matter interface is norm al. Skull and face: Calvarium and visualized facial bones are intact, without suspicious lesions. Sinuses: Visualized sinuses and mastoids are clear. IMPRESSION: 1. No acute intracranial process. Reviewed by: Debra Garcia MD on 08/22/2023 3:14 PM PDT Approved by: Debra Garcia MD on 08/22/2023 3:14 PM PDT Station ID: [id number]
--- NOTE | 2023-08-22 15:34 | ED Physician Documentation ---
ED Addendum - Addendum Addendum: 08/22/23 15:[address] Rocha at [address] shift change[address] Pending [address] head for head injury with mild confusion, GCS 14, now 15 on my reevaluation prior to discharge. CT of the head interpreted independently by me and final read received was negative for intracranial injury. Disposition: Discharged home Condition: Stable Diagnosis: 1. Concussion
== END 2023-08-22 15:45 | disposition home or self-care (01) ==
LOC: ED 11:31
DX: S06.0XAA Concussion with loss of consciousness status unknown, initial encounter (principal); S00.83XA Contusion of other part of head, initial encounter; W22.09XA Striking against other stationary object, initial encounter; Y93.89 Activity, other specified; Y92.138 Other place on military base as the place of occurrence of the external cause; Y99.1 Military activity; F17.200 Nicotine dependence, unspecified, uncomplicated
CPT/HCPCS: 70450; 99283; 99284; A9270